=== PATIENT | male | born 1980 | race African-American/Black ===

== ENCOUNTER 2017-02-21 11:01 | Emergency (ER) | payer OTHER ==
[~2017-02-21] VITALS: Ht 172.7 cm; Wt 99.8 kg
[~2017-02-21 11:01] MED LIST: ADVAIR 100-501 EACH IH; ADVAIR HFA 45MC1 AER INH; DOXYCYCLINE 10100 MG PO; FLEXERIL PO; MAXAIR AUTOHALE14 G1 IH; MEDROLDOSEPACK PO; NORCO 5-325 TA1 EACH PO; NORFLEX100 MG PO; PREDNISONE 20 M20 MG PO; VENTOLIN HFA 1818 GM; VENTOLIN HFA 1818 GM INH
[2017-02-21 11:39] LABS: ABSOLUTE NEUTROPHILS 7.1 thou/uL (1.4-8.2); BASOPHILS 0.1 % (0.0-2.0); EOSINOPHILS 0.3 % (0.0-3.0); HEMATOCRIT 46.5 % (42.0-52.0); HEMOGLOBIN 15.9 gm/dL (14.0-18.0); LYMPHOCYTES 21.3 % (24.0-44.0); MCHC 34.2 g/dL (28.0-37.0); MCV 93.6 fL (80.0-100.0); MONOCYTES 6.8 % (1.0-8.0); PLATELET COUNT 205 thou/uL (150-400); POLYS 71.5 % (36.0-66.0); RBC 4.97 mil/uL (4.50-6.00); RDW 13.1 % (10.5-14.5)
[2017-02-21 11:46] LABS: CALCIUM 9.5 mg/dL (8.5-10.1); CREATININE 1.2 mg/dL (0.7-1.3); POTASSIUM 4.4 mmol/L (3.5-5.1)
[2017-02-21 11:52] LABS: ALBUMIN 4.2 g/dL (3.4-5.0); TOTAL BILIRUBIN 0.3 mg/dL (<0.1-1.0); TOTAL PROTEIN 8.1 g/dL (6.4-8.2)
[2017-02-21 12:36] LABS: URINE BILIRUBIN NEGATIVE (Negative); URINE BLOOD TRACE (Negative); URINE CLARITY CLEAR; URINE COLOR YELLOW; URINE GLUCOSE-RANDOM* NEGATIVE (Negative); URINE KETONES TRACE (Negative); URINE LEUKOCYTES NEGATIVE (Negative); URINE NITRITE NEGATIVE (Negative); URINE PROTEIN (DIPSTICK) NEGATIVE (Negative); URINE UROBILINOGEN 0.2 E.U./dl (0.2-1.0)
== END 2017-02-21 14:31 | disposition home or self-care (01) ==
LOC: ER 11:01
PROVIDERS: Emergency Medicine; Physician Assistant
DX: E86.0 Dehydration (principal); R25.2 Cramp and spasm; J45.909 Unspecified asthma, uncomplicated; Z88.0 Allergy status to penicillin

== ENCOUNTER 2017-03-09 20:54 | Emergency (ER) | payer OTHER ==
[~2017-03-09] VITALS: Ht 172.7 cm; Wt 93.9 kg
[2017-03-09 21:52] LABS: CALCIUM 9.2 mg/dL (8.5-10.1); CREATININE 1.4 mg/dL (0.7-1.3); POTASSIUM 3.9 mmol/L (3.5-5.1)
[2017-03-09] MEDS ORDERED: HYDROCODONE-AP1 EAC6 PO (22:35)
== END 2017-03-09 23:07 | disposition home or self-care (01) ==
LOC: ER 20:54
PROVIDERS: Physician Assistant
DX: S70.02XA Contusion of left hip, initial encounter (principal); R10.9 Unspecified abdominal pain; J45.909 Unspecified asthma, uncomplicated; Z88.0 Allergy status to penicillin; V89.0XXA Person injured in unspecified motor-vehicle accident, nontraffic, initial encounter; Y93.89 Activity, other specified; Y92.89 Other specified places as the place of occurrence of the external cause; Y99.8 Other external cause status

== ENCOUNTER 2017-08-24 15:10 | Emergency (ER) | payer OTHER ==
[~2017-08-24] VITALS: Ht 170.2 cm; Wt 95.3 kg
[~2017-08-24 15:10] MED LIST changes: +HYDROCODONE-AP1 EAC6 PO
[2017-08-24 15:28] LABS: URINE BILIRUBIN NEGATIVE (Negative); URINE BLOOD TRACE (Negative); URINE CLARITY CLEAR; URINE COLOR YELLOW; URINE GLUCOSE-RANDOM* NEGATIVE (Negative); URINE KETONES NEGATIVE (Negative); URINE LEUKOCYTES-REFLEX NEGATIVE (Negative); URINE NITRITE-REFLEX NEGATIVE (Negative); URINE PROTEIN (DIPSTICK) NEGATIVE (Negative); URINE SPECIFIC GRAVITY 1.015 (1.005-1.035); URINE UROBILINOGEN 0.2 E.U./dl (0.2-1.0)
[2017-08-24 15:44] LABS: CALCIUM 9.5 mg/dL (8.5-10.1); CREATININE 1.2 mg/dL (0.7-1.3)
[2017-08-24 16:29] VITALS: BP 156/105
[2017-08-24] MEDS ORDERED: NORFLEX100 MG PO (16:54)
== END 2017-08-24 16:58 | disposition home or self-care (01) ==
LOC: ER 15:10
PROVIDERS: Emergency Medicine
DX: R03.0 Elevated blood-pressure reading, without diagnosis of hypertension (principal); R25.2 Cramp and spasm; E86.0 Dehydration; J45.909 Unspecified asthma, uncomplicated; Z88.0 Allergy status to penicillin

== ENCOUNTER 2017-11-04 09:28 | Emergency (ER) | payer OTHER ==
[~2017-11-04] VITALS: Ht 172.7 cm; Wt 97.5 kg
[2017-11-04] MEDS ORDERED: ACCUNEB SO1.25 MG/1 INH (10:43)
[2017-11-04] MEDS ORDERED: VENTOLIN HFA 1818 GM INH (10:43)
[2017-11-04 11:15] VITALS: BP 168/109
== END 2017-11-04 11:15 | disposition home or self-care (01) ==
LOC: ER 09:28
DX: J45.901 Unspecified asthma with (acute) exacerbation (principal); J30.9 Allergic rhinitis, unspecified; Z88.0 Allergy status to penicillin

== ENCOUNTER 2017-12-01 22:46 | Emergency (ER) | payer OTHER ==
[~2017-12-01] VITALS: Ht 167.6 cm; Wt 95.3 kg
[~2017-12-01 22:46] MED LIST changes: +ACCUNEB SO1.25 MG/1 INH
[2017-12-01 23:34] LABS: ABSOLUTE NEUTROPHILS 5.9 thou/uL (1.4-8.2); BASOPHILS 0.6 % (0.0-2.0); EOSINOPHILS 1.5 % (0.0-3.0); HEMATOCRIT 41.1 % (42.0-52.0); HEMOGLOBIN 14.1 gm/dL (14.0-18.0); LYMPHOCYTES 28.3 % (24.0-44.0); MCH 31.6 pg (26.0-34.0); MCHC 34.3 g/dL (28.0-37.0); MCV 92.2 fL (80.0-100.0); MONOCYTES 8.5 % (1.0-8.0); PLATELET COUNT 190 thou/uL (150-400); POLYS 61.1 % (36.0-66.0); RBC 4.45 mil/uL (4.50-6.00); RDW 13.1 % (10.5-14.5); WBC 9.6 thou/uL (4.0-11.0)
[2017-12-01 23:40] LABS: CREATININE 1.3 mg/dL (0.7-1.3)
[2017-12-02 00:06] LABS: LARGE PLATELETS OCCASIONAL
[2017-12-02] MEDS ORDERED: ALBUTEROL2.5 MG/31 INH (01:51)
[2017-12-02] MEDS ORDERED: PREDNISONE 20 M20 MG PO (01:51)
[2017-12-02 02:25] VITALS: BP 132/91
== END 2017-12-02 02:25 | disposition home or self-care (01) ==
LOC: ER 22:46
PROVIDERS: Student in an Organized Health Care Education/Training Program
DX: J45.901 Unspecified asthma with (acute) exacerbation (principal); Z88.0 Allergy status to penicillin

== ENCOUNTER 2018-11-14 15:47 | Emergency (ER) | payer OTHER ==
[~2018-11-14] VITALS: Ht 170.2 cm; Wt 91.6 kg
[~2018-11-14 15:47] MED LIST changes: +ALBUTEROL2.5 MG/31 INH
[2018-11-14 16:23] LABS: ABSOLUTE NEUTROPHILS 8.3 thou/uL (1.4-8.2); BASOPHILS 0.3 % (0.0-2.0); EOSINOPHILS 0.4 % (0.0-3.0); HEMOGLOBIN 14.4 gm/dL (14.0-18.0); LYMPHOCYTES 22.4 % (24.0-44.0); MCH 31.4 pg (26.0-34.0); MCHC 33.5 g/dL (28.0-37.0); MCV 93.8 fL (80.0-100.0); MONOCYTES 7.9 % (1.0-8.0); PLATELET COUNT 191 thou/uL (150-400); RBC 4.59 mil/uL (4.50-6.00); RDW 13.9 % (10.5-14.5); WBC 12.1 thou/uL (4.0-11.0)
[2018-11-14 16:36] LABS: CALCIUM 9.5 mg/dL (8.5-10.1); CREATININE 1.4 mg/dL (0.7-1.3); POTASSIUM 3.8 mmol/L (3.5-5.1)
[2018-11-14 16:37] LABS: MAGNESIUM 2.1 mg/dL (1.8-2.4); TROPONIN-I <0.06 ng/mL (<0.06)
[2018-11-14 16:52] LABS: ALBUMIN 4.2 g/dL (3.4-5.0); TOTAL BILIRUBIN 0.4 mg/dL (<0.1-1.0); TOTAL PROTEIN 7.9 g/dL (6.4-8.2)
[2018-11-14 18:20] VITALS: BP 134/100
--- NOTE | 2018-11-16 12:43 | EKG ---
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
== END 2018-11-14 18:20 | disposition home or self-care (01) ==
LOC: ER 15:47
PROVIDERS: Physician Assistant
DX: E86.0 Dehydration (principal); M62.82 Rhabdomyolysis; J45.909 Unspecified asthma, uncomplicated; Z88.0 Allergy status to penicillin

== ENCOUNTER 2019-02-15 14:36 | Emergency (ER) | payer OTHER ==
[~2019-02-15] VITALS: Ht 172.7 cm; Wt 93.4 kg
[2019-02-15] MEDS ORDERED: IBUPROFEN 600600 M1 PO (15:11)
[2019-02-15] MEDS ORDERED: AZITHROMYCIN 2250 MG PO (15:11)
[2019-02-15 16:03] VITALS: BP 148/75
== END 2019-02-15 16:03 | disposition home or self-care (01) ==
LOC: ER 14:36
DX: J02.0 Streptococcal pharyngitis (principal); J45.909 Unspecified asthma, uncomplicated; Z88.0 Allergy status to penicillin

== ENCOUNTER 2019-09-20 07:12 | Emergency (ER) | payer OTHER ==
[~2019-09-20] VITALS: Ht 172.7 cm; Wt 91.6 kg
[~2019-09-20 07:12] MED LIST changes: +AZITHROMYCIN 2250 MG PO; +IBUPROFEN 600600 M1 PO
[2019-09-20 08:47] LABS: URINE BILIRUBIN NEGATIVE (Negative); URINE BLOOD TRACE (Negative); URINE CLARITY CLEAR; URINE COLOR YELLOW; URINE GLUCOSE-RANDOM* NEGATIVE (Negative); URINE KETONES NEGATIVE (Negative); URINE LEUKOCYTES-REFLEX NEGATIVE (Negative); URINE NITRITE-REFLEX NEGATIVE (Negative); URINE PROTEIN (DIPSTICK) NEGATIVE (Negative); URINE UROBILINOGEN 0.2 E.U./dl (0.2-1.0)
[2019-09-20 09:01] LABS: CALCIUM 8.3 mg/dL (8.5-10.1); CREATININE 1.3 mg/dL (0.7-1.3)
[2019-09-20] MEDS ORDERED: ZESTRIL10 MG PO (09:59)
[2019-09-20 10:10] VITALS: BP 156/105
== END 2019-09-20 10:10 | disposition home or self-care (01) ==
LOC: ER 07:12
PROVIDERS: Emergency Medicine
DX: I10 Essential (primary) hypertension (principal); R11.10 Vomiting, unspecified; R42 Dizziness and giddiness; J45.909 Unspecified asthma, uncomplicated; Z79.2 Long term (current) use of antibiotics; Z79.899 Other long term (current) drug therapy; Z88.0 Allergy status to penicillin

== ENCOUNTER 2019-11-19 03:50 | Emergency (ER) | payer OTHER ==
[~2019-11-19] VITALS: Ht 172.7 cm; Wt 93.0 kg
[~2019-11-19 03:50] MED LIST changes: +ZESTRIL10 MG PO
[2019-11-19] MEDS ORDERED: VENTOLIN HFA 1818 GM INH (04:19)
[2019-11-19] MEDS ORDERED: PREDNISONE 20 M20 MG PO (04:19)
[2019-11-19 04:52] VITALS: BP 146/103
== END 2019-11-19 04:55 | disposition home or self-care (01) ==
LOC: ER 03:50
DX: J45.901 Unspecified asthma with (acute) exacerbation (principal); Z79.1 Long term (current) use of non-steroidal anti-inflammatories (NSAID); Z79.2 Long term (current) use of antibiotics; Z79.899 Other long term (current) drug therapy; Z88.0 Allergy status to penicillin

== ENCOUNTER 2020-10-30 21:27 | Emergency (ER) | payer OTHER ==
[~2020-10-30] VITALS: Ht 172.7 cm; Wt 93.0 kg
[~2020-10-30 21:27] MED LIST changes: +NAPROSYN500 MG PO
[2020-10-30] MEDS ORDERED: PREDNISONE50 MG PO (22:32)
[2020-10-30 22:42] VITALS: BP 175/117
--- NOTE | 2020-10-31 07:24 | EKG ---
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
== END 2020-10-30 22:51 | disposition home or self-care (01) ==
LOC: ER 21:27
DX: J45.901 Unspecified asthma with (acute) exacerbation (principal); I10 Essential (primary) hypertension; Z79.51 Long term (current) use of inhaled steroids; Z79.1 Long term (current) use of non-steroidal anti-inflammatories (NSAID); Z88.0 Allergy status to penicillin

== ENCOUNTER 2020-11-26 18:13 | Emergency (ER) | payer BC ==
[~2020-11-26] VITALS: Ht 172.7 cm; Wt 95.3 kg
[~2020-11-26 18:13] MED LIST changes: +PREDNISONE50 MG PO
[2020-11-26 18:36] LABS: BASOPHILS 0.4 % (0.0-2.0); EOSINOPHILS 2.1 % (0.0-3.0); HEMATOCRIT 41.6 % (42.0-52.0); LYMPHOCYTES 28.8 % (24.0-44.0); MCH 31.5 pg (26.0-34.0); MCHC 33.7 g/dL (28.0-37.0); MCV 93.6 fL (80.0-100.0); PLATELET COUNT 193 thou/uL (150-400); POLYS 61.7 % (36.0-66.0); RBC 4.44 mil/uL (4.50-6.00); RDW 13.1 % (10.5-14.5); WBC 9.7 thou/uL (4.0-11.0)
[2020-11-26 18:44] LABS: CREATININE 1.2 mg/dL (0.7-1.3); POTASSIUM 4.1 mmol/L (3.5-5.1)
[2020-11-26 18:53] LABS: ALBUMIN 3.7 g/dL (3.4-5.0); TOTAL BILIRUBIN 0.1 mg/dL (0.2-1.0); TOTAL PROTEIN 7.1 g/dL (6.4-8.2)
[2020-11-26] MEDS ORDERED: NORVASC5 MG PO (20:54)
[2020-11-26 21:02] LABS: URINE BILIRUBIN NEGATIVE (Negative); URINE BLOOD NEGATIVE (Negative); URINE CLARITY CLEAR; URINE COLOR YELLOW; URINE GLUCOSE-RANDOM* TRACE (Negative); URINE KETONES NEGATIVE (Negative); URINE LEUKOCYTES-REFLEX NEGATIVE (Negative); URINE NITRITE-REFLEX NEGATIVE (Negative); URINE PROTEIN (DIPSTICK) NEGATIVE (Negative); URINE SPECIFIC GRAVITY <= 1.005 (1.005-1.035); URINE UROBILINOGEN 0.2 E.U./dl (0.2-1.0)
[2020-11-26 21:28] VITALS: BP 148/83
--- NOTE | 2020-11-27 07:26 | EKG ---
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 : 1980 Requested By: Joseph Toney Order Number: [id number] MD: George Esparza Measurements Intervals [place] Rate: 114 P: 38 NM: 137 QRS: 14 QRSD: 72 T: 20 QT: 299 QTc: 412 Interpretive Statements Sinus tachycardia Borderline T wave abnormalities Baseline wander in lead(s) V3 Compared to ECG 10/30/2020 22:05:21 T-wave abnormality now present Sinus rhythm no longer present Electronically Signed On 11-27-2020 7:26:05 CDT by George Esparza [email or web address] <ELECTRONICALLY SIGNED> By: George Esparza MD, [facility] 11/27/20 07 19 19 George Esparza MD, FACC /EPI
== END 2020-11-26 21:29 | disposition home or self-care (01) ==
LOC: ER 18:13
PROVIDERS: Emergency Medicine
DX: I10 Essential (primary) hypertension (principal); R11.0 Nausea; J45.909 Unspecified asthma, uncomplicated; Z79.51 Long term (current) use of inhaled steroids; Z88.0 Allergy status to penicillin